=== PATIENT | female | born 2000 | race Two or more races ===

== ENCOUNTER 2019-09-08 09:33 | Emergency (ER) | payer MEDICAID ==
[~2019-09-08] VITALS: Ht 170.2 cm; Wt 99.8 kg
[2019-09-08 10:03] VITALS: BP 157/76
[2019-09-08] MEDS ORDERED: LIDOCAINE 1% HCL (LOCAL ANESTH.) INJ 20ML MDV IJ ONE (10:30)
[2019-09-08] MEDS ORDERED: HYDROcodone-ACET 5/325MG TAB PO ONE (10:30)
[2019-09-08] MEDS ORDERED: PROMETHAZINE HCL 25 MG/ML 1ML IM ONE (11:00)
== END 2019-09-08 11:20 | disposition home or self-care (01) ==
LOC: ER 09:33
DX: L05.01 Pilonidal cyst with abscess (principal); Z88.0 Allergy status to penicillin
CPT/HCPCS: 10080; 96372; 99284; J2001; J2550

== ENCOUNTER 2019-09-11 09:56 | Emergency (ER) | payer MEDICAID ==
[~2019-09-11] VITALS: Ht 170.2 cm; Wt 99.8 kg
[2019-09-11 11:20] VITALS: BP 102/69
== END 2019-09-11 12:31 | disposition home or self-care (01) ==
LOC: ER 09:56
DX: L05.01 Pilonidal cyst with abscess (principal); Z88.0 Allergy status to penicillin